=== PATIENT | male | born 1940 | race African-American/Black ===

== ENCOUNTER 2016-07-21 14:39 | Inpatient (IN) | payer MEDICARE ==
[~2016-07-21] VITALS: Ht 172.7 cm; Wt 80.5 kg
[~2016-07-21 14:39] MED LIST: ALBUTEROL S2.5 MG/.5 IN; ALBUTEROL2.5 MG/3 M IN; ALDACTONE25 MG PO; ALLOPURINOL300 MG PO; ANTIVERT PO; ANUCORT-HC25 MG RE; ARIXTR1 SC; ASPIRIN 81 LOW81 MG PO; ASPIRIN CHEWABL81 MG PO; ASPIRIN EC81 MG PO; ASPIRIN325 M1 OR; AVELOX400 MG OR; AVELOX400 MG PO; AZITHROMYCIN500 MG OR; BACTRIM DS1 TAB PO; BAYER ASA325 MG OR; BAYER LOW81 MG OR; CARVEDILOL25 MG PO; CEPHALEXIN500 M1 OR; CIPRO750 MG OR; CLONIDINE0.1 MG PO; COUMADIN5 MG OR; COUMADIN5 MG PO; COUMADIN7.5 MG OR; COUMADIN7.5 MG PO; DARVOCET-N 100100 MG OR; DEMADEX10 MG OR; DEMADEX20 MG PO; DULCOLAX SS100 MG PO; FERROUS SULF325 M3 PO; FOLIC ACID1 MG PO; FUROSEMIDE20 MG PO; HUMALOG100 UNIT/M SC; HYDROCO/APAP1 T11 PO; INSULIN; ISOSORB MONO20 MG PO; JANTOVEN2.5 MG PO; JANTOVEN5 MG PO; LANTUS100 MG/ML SC; LASIX 20 MG TAB20 MG PO; LASIX 20 MG20 MG/TAB PO; LASIX 40 MG TAB40 MG PO; LEVEMIR FL100 UNIT/M SC; LISINOPRIL10 MG OR; LISINOPRIL10 MG PO; LISINOPRIL20 M1 PO; LISINOPRIL5 MG OR; LOPRESSOR25 MG PO; LOPRESSOR50 M1 PO; LOPRESSOR50 MG OR; LORTAB 5 OR; LORTAB 5 PO; LOSARTAN POT50 MG PO; LOTRISONE CREAM15 GM TOP; MAG CITRATE PO; MEMANTINE HCL10 MG PO; METOPROLOL TAR100 MG PO; MILK OF MAG30 ML/UDC PO; MIRALAX3350 N1 PO; NAFCILLIN SODIUM2 GM IJ; NITROGLYCER0.4 MG SL; NITROSTAT0.3 MG SL; NORCO1 TA1 PO; NORVASC10 M1 PO; NORVASC5 MG PO; OMEPRAZOLE20 MG OR; OMEPRAZOLE20 MG PO; ONDANSETRON4 MG PO; PEPCID20 MG PO; PHENERGAN SUPP RE; POTASSIUM CHLO20 ME2 PO; PRAVACHOL20 MG PO; PREDNISONE10 MG PO; PROCRIT 1010000 U/ML IM; PROTONIX40 M3 PO; PT DOES NOT RECALL; RANEXA ER PO; RIFAMPIN300 MG PO; ROBITUSSIN AC OR; RYBIX ODT50 MG PO; SENNA1 TAB PO; SIMVASTATIN10 MG PO; SIMVASTATIN80 MG OR; ST JOSEPH75 MG OR; TOPROL XL25 M1 PO; TORSEMIDE20 M1 OR; TORSEMIDE20 M1 PO; TORSEMIDE20 MG OR; TRAMADOL HCL50 MG OR; TRAMADOL HCL50 MG PO; TYLENOL500 MG OR; ULTRAM50 M1 OR; ULTRAM50 M1 PO; ULTRAM50 MG OR; ULTRAM50 MG PO; VENTOLIN HFA IN; VIT B COMPLEX PO; VITAMIN D50000 UN1 PO; ZESTRIL10 M1 OR; ZESTRIL10 MG PO; ZOCOR OR; ZOCOR10 MG PO; ZOCOR20 MG OR; ZOCOR80 MG OR; ZYLOPRIM100 MG OR; ZYLOPRIM300 MG PO; [UNRECOGNIZED DRUG - OTHER] PO; [UNRECOGNIZED DRUG - SUPPLY]
[2016-07-21 15:16] LABS: HEMATOCRIT 28.2 % (39.0-50.0); HEMOGLOBIN 9.2 g/dl (14.0-18.0); IMMATURE GRANULOCYTES 0.4 % (0.0-1.0); MEAN CELL VOLUME 96.2 fL CALC (80.0-100.0); MEAN CORPUSCULAR HGB 31.4 pG CALC (26.0-32.0); MEAN CORPUSCULAR HGB CONC 32.6 g/L CALC (32.0-36.0); NEUT# 1.28 thou/uL (1.82-7.42); RED BLOOD COUNT 2.93 mill/uL (4.70-6.10); RED CELL DISTRI WIDTH 15.4 % (11.5-15.5)
[2016-07-21 15:20] LABS: INTERNATIONAL NORMALIZED RATIO 1.1 RATIO (0.7-1.3); PROTHROMBIN TIME 12.3 SECONDS (9.0-12.5)
[2016-07-21 15:27] LABS: ALBUMIN 3.8 g/dL (3.2-5.0); BILIRUBIN, TOTAL 1.1 mg/dL (0.0-1.4); CALCIUM 9.2 mg/dL (8.4-10.2); TOTAL PROTEIN 6.8 g/dL (6.3-8.2)
[2016-07-21 15:28] LABS: POTASSIUM 5.9 mmol/l (3.5-5.1)
--- NOTE | 2016-07-21 16:57 | NUR ---
PT SEEN RESTING QUIETLY IN THE STRETCHER, SEEN HYPERTENSIVE.
[2016-07-21 16:58] LABS: URINE BILIRUBIN - DIPSTICK NEGATIVE (NEGATIVE); URINE BLOOD DIPSTICK SMALL (NEGATIVE); URINE CLARITY CLEAR; URINE COLOR YELLOW; URINE GLUCOSE - DIPSTICK NEGATIVE (NEGATIVE); URINE KETONE NEGATIVE (NEGATIVE); URINE LEUK ESTERASE NEGATIVE (NEGATIVE); URINE NITRITE - DIPSTICK NEGATIVE (Negative); URINE PROTEIN - DIPSTICK TRACE mg/dL (NEG-TRACE); URINE UROBILINOGEN - DIPSTICK 0.2 E.U./dL (0.2)
--- NOTE | 2016-07-21 17:08 | NUR ---
PT PROVIDED ENALAPRIL IV FOR ELEVATED BP.
[2016-07-21 17:18] LABS: URINE WBC 0-2 WBC/hpf (0-5)
[2016-07-21] MEDS ORDERED: DOXAZOSIN1 MG PO (19:19)
[2016-07-21] MEDS ORDERED: RANEXA PO (19:21)
[2016-07-21] MEDS ORDERED: LASIX 20 MG20 MG/TAB PO (19:21)
[2016-07-21] MEDS ORDERED: CLONIDINE0.1 MG PO (19:22)
--- NOTE | 2016-07-21 19:32 | NUR ---
PT TAKEN TO FLOOR BY SAM, REPORT WAS TO ZECHARIAH.
[2016-07-21 19:37] VITALS: BP 155/73
--- NOTE | 2016-07-21 19:37 | NUR ---
PT TRANSFERED TO FLOOR IN STABLE CONDITION VIA STRETCHER ACCOMPANIED BY QUIQUE VARGAS;PT AMBULATED WITH WEAK GAIT TO STANDING SCALE;VS OBTAINED;PT ORIENTED TO ROOM AND CALL LIGHT SYSTEM AND VERBALIZED UNDERSTANDING;PT DENIES ANY PAIN OR DIZZINESS AT THIS TIME;EMS IV SITE TO RT WRIST FLUSHED AND PATENT,FLUIDS STARTED AT THIS;TELE MONITOR IN PLACE AT A PACED RATE;ASSESSMENT COMPLETED;SKIN INTACT;PT A&O X3;PT STATED LAST BM TO BE 07/20;PT EDUCATED ON SAFETY PRECAUTIONS AND VERBALIZES UNDERSTANDING;URINAL AT BEDSIDE;PT TOLD TO CALL FOR ASSISTANCE IF NEEDED;BED IN LOWEST POSITION WITH CALL LIGHT IN REACH;WILL CONTINUE TO MONITOR
[2016-07-21 21:30] VITALS: BP 138/71
--- NOTE | 2016-07-21 22:00 | NUR ---
PT REQUESTS PRN SLEEP MEDICATION; NOTIFED;NO NEW ORDERS RECEIVED;WILL CONTINUE TO MONITOR
[2016-07-21 23:11] VITALS: BP 150/80
--- NOTE | 2016-07-21 23:30 | NUR ---
PT SLEEPING IN SEMI FOWLERS POSITION;NO S/S OF DISTRESS NOTED;RESPIRATIONS EVEN AND UNLABORED ON RA;URINAL AT BEDSIDE;FALL PRECAUTIONS IN PLACE;BED IN LOWEST POSITION WITH CALL LIGHT IN REACH;WILL CONTINUE TO MONITOR
--- NOTE | 2016-07-22 04:30 | NUR ---
PT RESTING IN SEMI FOWLERS;VS OBTAINED;PT DENIES ANY PAIN OR DISCOMFORTS;IV SITE INFUSING WELL;TELE MONITOR IN PLACE;PT REFUSES DAILY WT AT THIS TIME STATING "I WILL WHEN I WAKE UP MORE";PT DENIES ANY OTHER NEEDS AT THIS TIME;BED IN LOWEST POSITION WITH CALL LIGHT IN REACH;WILL CONTINUE TO MONITOR
[2016-07-22 04:36] VITALS: BP 135/78
[2016-07-22 06:32] LABS: INTERNATIONAL NORMALIZED RATIO 1.2 RATIO (0.7-1.3); PROTHROMBIN TIME 13.4 SECONDS (9.0-12.5)
[2016-07-22 06:37] LABS: ALBUMIN 3.4 g/dL (3.2-5.0); CREATININE 3.5 mg/dL (0.7-1.3); POTASSIUM 4.9 mmol/l (3.5-5.1)
[2016-07-22 07:40] VITALS: BP 117/69
--- NOTE | 2016-07-22 07:40 | NUR ---
PT SITTING UP IN RECLINER AT BEDSIDE, IVF INFUSING AT PRESCRIBED RATE, AM ASSESSMENT COMPLETED, SEE INTERVENTIONS, DENIES PAIN OR DISCOMFORT, NO SHORTNESS OF BREATH OR DISTRESS NOTED, TOLERATING AM MEAL W/O INCIDENT, SAFTEY MEASURES REINFORCED, CALL GOMEZ WITHIN REACH, ENCOURAGED TO CALL FOR ANY NEEDED ASSISTANCE, VERBALIZES UNDERSTANDING, WILL CONTINUE TO MONITOR.
--- NOTE | 2016-07-22 08:15 | NUR ---
BLANKET PROVIDED FOR COMFORT, OFFERS NO OTHER COMPLAINTS, TOLERATE BREAKFAST WELL WITH ADEQUATE INTAKE.
--- NOTE | 2016-07-22 09:20 | NUR ---
IN TO SEE PATIENT, PLAN OF CARE DISCUSSED, CALL GOMEZ WITHIN REACH
--- NOTE | 2016-07-22 11:39 | NUR ---
PT REMAINS SITTING UP IN CHAIR AT BEDSIDE, DOZES INTERMITTENLY, OFFERS NO NEW COMPLAINTS, IVF CONTINUE W/O INCIDENT, WILL CONTINUE TO MONITOR.
[2016-07-22 12:13] VITALS: BP 122/71
[2016-07-22 16:35] VITALS: BP 137/82
--- NOTE | 2016-07-22 16:39 | NUR ---
PT REMAINS SITTING UP IN CHAIR WITH FEET ELEVATED, FAMILY REMAINS AT BEDSIE, OFFERS NO COMPLAINTS OFFERED WILL CONTINUE TO MONITOR
[2016-07-22 20:08] VITALS: BP 137/78
--- NOTE | 2016-07-22 21:20 | NUR ---
PT RESTING IN HIGH FOWLERS POSITION;IV FLUIDS INFUSING WELL TO RT FOREARM;PT EDUCATED ON EMS IV SITE EXPIRATION DATE AND AGREES TO START NEW SITE IN THE MORNING;ASSESSMENT COMPLETED;BILATERAL LOWER LEG EDEMA NOTED,FEET ELEVATED WITH A PILLOW;SKIN INTACT;TELE MONITOR IN PLACE READING PACED 69;URINAL AT BEDSIDE;PT DENIES ANY PAIN OR NEEDS AT THIS TIME;PT TOLD TO CALL FOR ASSISTANCE IF NEEDED;BED IN LOWEST POSITION WITH FALL PRECAUTIONS IN PLACE;CALL LIGHT WITHIN REACH;WILL CONTINUE TO MONITOR
[2016-07-23] VITALS (7 sets, daily range): BP systolic 121–170; BP diastolic 68–89
--- NOTE | 2016-07-23 00:15 | NUR ---
PT SLEEPING IN SEMI FOWLERS POSITION;NO S/S OF DISTRESS NOTED;RESPIRATIONS EVEN AND UNLABORED ON RA;IV FLUIDS INFUSING WELL;TELE MONITOR IN PLACE;URINAL AT BEDSIDE;BED IN LOWEST POSITION WITH CALL LIGHT IN REACH;WILL CONTINUE TO MONITOR
--- NOTE | 2016-07-23 03:20 | NUR ---
PT RESTING IN HIGH FOWLERS POSITION;NEW BAG OF FLUIDS HUNG PER MED SCHEDULE;VS OBTAINED;PT DENIES ANY PAIN OR NEEDS AT THIS TIME;URINAL AT BEDSIDE;TELE MONITOR IN PLACE;BED IN LOWEST POSITION WITH CALL LIGHT IN REACH;WILL CONTINUE TO MONITOR
--- NOTE | 2016-07-23 03:57 | NUR ---
NEW #20 STARTED TO PTS RT WRIST;EMS SITE REMOVED,WITH CATHETER INTACT, DUE TO EXPIRATION;IV FLUIDS INFUSING WELL AT THIS TIME;PT DENIES ANY OTHER NEEDS;BED IN LOWEST POSITION WITH CALL LIGHT IN REACH;WILL CONTINUE TO MONITOR
[2016-07-23 05:55] LABS: CALCIUM 8.7 mg/dL (8.4-10.2); POTASSIUM 4.7 mmol/l (3.5-5.1)
--- NOTE | 2016-07-23 07:00 | NUR ---
SHIFT CHANGE REPORT FROM FAITH DENIS AWAKE ALERT AND ORIENTED BEING ASSISTED WITH SHOWER AT THIS TIME, WILL CONTINUE TO MONITOR.
--- NOTE | 2016-07-23 12:00 | NUR ---
SITTING UP IN RECLINER HAVING MEAL, ALL NEEDS MET/ADDRESSED, CALL GOMEZ IN REACH.
--- NOTE | 2016-07-23 14:02 | NUR ---
PATIENT UP IN CHAIR ASLEEP. EASILY AROUSED AND AGREED TO AMB. SIT TO STAND WITH SBA AND AMB WITH [employer] MANAGEMENT OFFICER WHILE PUSHING IV POLE WITH OTHER HAND. BALANCE WAS UNSTEADY WITH NARROW BASE OF SUPPORT. HE AMB 90 FEET WITH ON ROOM AIR WITH O2 SATS DECREASING FROM 96% TO 90%. STAND TO SIT WITH DECREASED GRADED CONTROL AND SAFETY, BUT GOOD HAND PLACEMENT. ABLE TO MARCH AND EXTEND KNEES IN SITTING ALTERNATELY. DEMONSTRATES DECREASED GENERAL STRENGTH AND REPORTS RECENT FALL WITH INABILITY TO GET UP BY HIMSELF (LAST WEDNESDAY). DISCUSSED NECESSITY FOR INPATIENT REHAB AND HE IS WILLING TO GO IF INSURANCE WILL COVER IT. PHYSICIAN NOTIFIED AND CASE MANAGEMENT WORKING ON IT.
--- NOTE | 2016-07-23 16:00 | NUR ---
SITTING UP IN RECLINEDR, C/O BACK PAIN, ISSUE ADDRESSED, CALL GOMEZ IN REACH.
--- NOTE | 2016-07-23 20:05 | NUR ---
PT IN BED WATCHING TV, RESPIRATIONS EVEN AND UNLABORED ON RA, DENIES PAIN OR DISCOMFORT. NS INFUSING TO RW AT 50CC/HR. CALL LIGHT AND URINAL AT BED SIDE.
--- NOTE | 2016-07-24 00:25 | NUR ---
RESTING WITH EYES CLOSED, RESPIRATIONS EVEN AND UNLABORED.
[2016-07-24 03:38] VITALS: BP 157/80
[2016-07-24 05:18] LABS: HEMATOCRIT 28.4 % (39.0-50.0); HEMOGLOBIN 9.2 g/dl (14.0-18.0); IMMATURE GRANULOCYTES 0.4 % (0.0-1.0); MEAN CORPUSCULAR HGB 30.8 pG CALC (26.0-32.0); MEAN CORPUSCULAR HGB CONC 32.4 g/L CALC (32.0-36.0); NEUT# 1.12 thou/uL (1.82-7.42); RED BLOOD COUNT 2.99 mill/uL (4.70-6.10); RED CELL DISTRI WIDTH 15.1 % (11.5-15.5)
[2016-07-24 05:43] LABS: CALCIUM 8.9 mg/dL (8.4-10.2); CREATININE 2.5 mg/dL (0.7-1.3); POTASSIUM 4.9 mmol/l (3.5-5.1)
[2016-07-24 05:46] LABS: INTERNATIONAL NORMALIZED RATIO 1.3 RATIO (0.7-1.3); PROTHROMBIN TIME 14.1 SECONDS (9.0-12.5)
--- NOTE | 2016-07-24 07:07 | NUR ---
BEDSIDE REPORT RECEIVED FROM ROSALVA CHRISTIAN. PT UP TO CHAIR. DENIES PAIN. REPORTING OF CONCERNS ENCOURAGED. PLAN OF CARE DISCUSSED. FALL PRECAUTIONS REINFORCED. CALL LIGHT REVIEWED AND IN REACH. PT STATES UNDERSTANDING.
--- NOTE | 2016-07-24 08:36 | NUR ---
PT REPORTS NAUSEA. ZOFRAN IV ADMINISTERED. WILL CONTINUE TO MONITOR.
[2016-07-24 09:32] VITALS: BP 148/79
[2016-07-24 11:03] VITALS: BP 156/88
--- NOTE | 2016-07-24 11:27 | NUR ---
PATIENT UP IN CHAIR, MORE ALERT AND WILLING TO WALK. SIT TO STAND WITH SBA FOR GT X 1. AMB WITH RW 125 FEET ON ROOM AIR WITH SBA AND NO LOB, EVEN WITH TURNING TODAY. ABLE TO PERFORM STAND TO SIT SAFELY WITH ONLY V.C. TO SHOW ME HOW HE CAN DO SO SAFELY. O2 SATS 92% UPON SITTING AND BACK UP TO 97% IN < A MIN. DISCUSSED NEED TO USE 2 WHEELED RW AT HOME TO CONSIDER HOME P.T. PATIENT WISHES TO BE HOME WITH HIS . HE DEMONSTRATES APPROX 80% IMPROVEMENT IN BALANCE AND SAFETY WITH RW SINCE HIS INITIAL EVALUATION EARLIER THIS WEEK. DISCUSSED ABOVE WITH CASE MANAGEMENT.
--- NOTE | 2016-07-24 15:07 | NUR ---
Discharge instructions given. Patient verbalizes understanding of same. Discharged in stable condition via Wheelchair to Home with spouse. All belongings sent with pt.
== END 2016-07-24 15:00 | disposition home health service (06) | DRG 312 ==
LOC: ENPENDDIS → ED 14:39 → ED-I 17:35 → ED 17:53 → MS2 17:54
PROVIDERS: Emergency Medicine; Internal Medicine; Internal Medicine Nephrology; ADMIT Internal Medicine; ATTEND Internal Medicine
DX: I95.1 Orthostatic hypotension (principal); N17.9 Acute kidney failure, unspecified; E11.22 Type 2 diabetes mellitus with diabetic chronic kidney disease; E87.5 Hyperkalemia; N25.81 Secondary hyperparathyroidism of renal origin; E86.0 Dehydration; I12.9 Hypertensive chronic kidney disease with stage 1 through stage 4 chronic kidney disease, or unspecified chronic kidney disease; N18.3 Chronic kidney disease, stage 3 (moderate); I25.10 Atherosclerotic heart disease of native coronary artery without angina pectoris; E78.5 Hyperlipidemia, unspecified; D63.1 Anemia in chronic kidney disease; E83.39 Other disorders of phosphorus metabolism; T50.1X5A Adverse effect of loop [high-ceiling] diuretics, initial encounter; T46.4X5A Adverse effect of angiotensin-converting-enzyme inhibitors, initial encounter; Z79.01 Long term (current) use of anticoagulants; Z95.3 Presence of xenogenic heart valve; Z91.81 History of falling; Z79.4 Long term (current) use of insulin; Z95.1 Presence of aortocoronary bypass graft
CPT/HCPCS: G0378; J0885; J1650

== ENCOUNTER 2016-11-16 14:57 | Observation (INO) | payer MEDICARE ==
[~2016-11-16] VITALS: Ht 172.7 cm; Wt 72.0 kg
[~2016-11-16 14:57] MED LIST changes: +DOXAZOSIN1 MG PO; +GLYCOLAX3350 N1 PO; +RANEXA PO; +SURFAK240 MG/CAP PO
[2016-11-16 15:45] LABS: HEMATOCRIT 24.9 % (39.0-50.0); HEMOGLOBIN 8.2 g/dl (14.0-18.0); IMMATURE GRANULOCYTES 0.5 % (0.0-1.0); MEAN CELL VOLUME 95.8 fL CALC (80.0-100.0); MEAN CORPUSCULAR HGB 31.5 pG CALC (26.0-32.0); MEAN CORPUSCULAR HGB CONC 32.9 g/L CALC (32.0-36.0); NEUT# 0.82 thou/uL (1.82-7.42); RED BLOOD COUNT 2.6 mill/uL (4.70-6.10); RED CELL DISTRI WIDTH 16.7 % (11.5-15.5)
[2016-11-16 15:59] LABS: ALBUMIN 3.8 g/dL (3.2-5.0); BILIRUBIN, TOTAL 0.7 mg/dL (0.0-1.4); CALCIUM 8.8 mg/dL (8.4-10.2); CREATININE 3.3 mg/dL (0.7-1.3); POTASSIUM 4.4 mmol/l (3.5-5.1); TOTAL PROTEIN 6.4 g/dL (6.3-8.2)
[2016-11-16 16:53] LABS: INTERNATIONAL NORMALIZED RATIO 3.5 RATIO (0.7-1.3); PROTHROMBIN TIME 41.9 SECONDS (9.0-12.5)
[2016-11-16] MEDS ORDERED: JANTOVEN2.5 MG PO (16:58)
[2016-11-16] MEDS ORDERED: ISOSORBIDE MONO30 MG PO (17:05)
[2016-11-16 20:07] VITALS: BP 127/72
[2016-11-17 01:43] VITALS: BP 140/84
[2016-11-17 05:28] VITALS: BP 152/90
[2016-11-17 06:20] LABS: HEMATOCRIT 25.3 % (39.0-50.0); HEMOGLOBIN 8.2 g/dl (14.0-18.0); IMMATURE GRANULOCYTES 0.4 % (0.0-1.0); MEAN CELL VOLUME 96.2 fL CALC (80.0-100.0); MEAN CORPUSCULAR HGB 31.2 pG CALC (26.0-32.0); MEAN CORPUSCULAR HGB CONC 32.4 g/L CALC (32.0-36.0); NEUT# 0.99 thou/uL (1.82-7.42); RED BLOOD COUNT 2.63 mill/uL (4.70-6.10); RED CELL DISTRI WIDTH 16.3 % (11.5-15.5)
[2016-11-17 06:29] LABS: CALCIUM 8.6 mg/dL (8.4-10.2); CREATININE 2.6 mg/dL (0.7-1.3)
[2016-11-17 06:36] LABS: INTERNATIONAL NORMALIZED RATIO 3.5 RATIO (0.7-1.3); PROTHROMBIN TIME 41.4 SECONDS (9.0-12.5)
[2016-11-17 08:00] VITALS: BP 146/78
[2016-11-17 12:25] VITALS: BP 123/76
[2016-11-17 15:30] VITALS: BP 182/89
== END 2016-11-17 17:20 | disposition home or self-care (01) ==
LOC: ENPENDDIS → ED 14:57 → ED-I 16:50 → ED 17:26 → MS2 17:27
PROVIDERS: Emergency Medicine; ADMIT Internal Medicine; ATTEND Internal Medicine
PROC: 0HQ1XZZ Repair Face Skin, External Approach (ICD-10-PCS; principal; 2016-11-16)
DX: I95.1 Orthostatic hypotension (principal); S01.112A Laceration without foreign body of left eyelid and periocular area, initial encounter; E11.22 Type 2 diabetes mellitus with diabetic chronic kidney disease; I12.9 Hypertensive chronic kidney disease with stage 1 through stage 4 chronic kidney disease, or unspecified chronic kidney disease; N18.3 Chronic kidney disease, stage 3 (moderate); E78.5 Hyperlipidemia, unspecified; E86.0 Dehydration; N17.9 Acute kidney failure, unspecified; D63.1 Anemia in chronic kidney disease; I48.91 Unspecified atrial fibrillation; I25.2 Old myocardial infarction; W19.XXXA Unspecified fall, initial encounter; Y92.009 Unspecified place in unspecified non-institutional (private) residence as the place of occurrence of the external cause; Z86.73 Personal history of transient ischemic attack (TIA), and cerebral infarction without residual deficits; Z95.0 Presence of cardiac pacemaker; Z95.2 Presence of prosthetic heart valve; Z79.01 Long term (current) use of anticoagulants; Z95.5 Presence of coronary angioplasty implant and graft

== ENCOUNTER 2017-01-21 08:03 | Observation (INO) | payer MEDICARE ==
[~2017-01-21] VITALS: Ht 172.7 cm; Wt 74.6 kg
[~2017-01-21 08:03] MED LIST changes: +ISOSORBIDE MONO30 MG PO
[2017-01-21] MEDS ORDERED: METOPROL TAR25 MG PO (08:41)
[2017-01-21] MEDS ORDERED: ISOSORB MONO30 MG PO (08:42)
[2017-01-21 08:43] LABS: HEMATOCRIT 24.6 % (39.0-50.0); HEMOGLOBIN 8.2 g/dl (14.0-18.0); IMMATURE GRANULOCYTES 0.4 % (0.0-1.0); MEAN CORPUSCULAR HGB 31.7 pG CALC (26.0-32.0); MEAN CORPUSCULAR HGB CONC 33.3 g/L CALC (32.0-36.0); NEUT# 1.08 thou/uL (1.82-7.42); RED BLOOD COUNT 2.59 mill/uL (4.70-6.10); RED CELL DISTRI WIDTH 15.4 % (11.5-15.5)
[2017-01-21] MEDS ORDERED: ATORVASTATIN CA20 MG PO (08:45)
[2017-01-21] MEDS ORDERED: FAMOTIDINE20 M1 PO (08:45)
[2017-01-21 09:06] LABS: INTERNATIONAL NORMALIZED RATIO 1.5 RATIO (0.7-1.3); PROTHROMBIN TIME 17.4 SECONDS (9.0-12.5)
[2017-01-21 09:08] LABS: ALBUMIN 3.5 g/dL (3.2-5.0); BILIRUBIN, TOTAL 1.4 mg/dL (0.0-1.4); CALCIUM 9.2 mg/dL (8.4-10.2); CREATININE 2.3 mg/dL (0.7-1.3); POTASSIUM 4.4 mmol/l (3.5-5.1); TOTAL PROTEIN 6.5 g/dL (6.3-8.2)
[2017-01-21 10:52] LABS: URINE BILIRUBIN - DIPSTICK NEGATIVE (NEGATIVE); URINE BLOOD DIPSTICK NEGATIVE (NEGATIVE); URINE CLARITY CLEAR; URINE COLOR YELLOW; URINE GLUCOSE - DIPSTICK NEGATIVE (NEGATIVE); URINE KETONE NEGATIVE (NEGATIVE); URINE LEUK ESTERASE NEGATIVE (NEGATIVE); URINE NITRITE - DIPSTICK NEGATIVE (Negative); URINE PROTEIN - DIPSTICK TRACE mg/dL (NEG-TRACE); URINE UROBILINOGEN - DIPSTICK 0.2 E.U./dL (0.2)
[2017-01-21 15:49] VITALS: BP 162/91
[2017-01-21 18:50] VITALS: BP 161/89
[2017-01-21 19:00] VITALS: BP 161/89
[2017-01-22 00:45] VITALS: BP 133/75
[2017-01-22 04:30] VITALS: BP 160/85
[2017-01-22 07:09] LABS: HEMATOCRIT 24.5 % (39.0-50.0); HEMOGLOBIN 8.2 g/dl (14.0-18.0); MEAN CELL VOLUME 94.6 fL CALC (80.0-100.0); MEAN CORPUSCULAR HGB 31.7 pG CALC (26.0-32.0); MEAN CORPUSCULAR HGB CONC 33.5 g/L CALC (32.0-36.0); NEUT# 1.01 thou/uL (1.82-7.42); RED BLOOD COUNT 2.59 mill/uL (4.70-6.10); RED CELL DISTRI WIDTH 15.3 % (11.5-15.5)
[2017-01-22 07:27] LABS: CALCIUM 9.1 mg/dL (8.4-10.2); POTASSIUM 4.3 mmol/l (3.5-5.1)
[2017-01-22 07:46] LABS: INTERNATIONAL NORMALIZED RATIO 1.5 RATIO (0.7-1.3); PROTHROMBIN TIME 16.8 SECONDS (9.0-12.5)
[2017-01-22 08:20] VITALS: BP 108/66
[2017-01-22 11:08] VITALS: BP 153/76
== END 2017-01-22 16:29 ==
LOC: ED 08:03 → ED-I 08:37 → ED 08:37 → ED-I 10:18 → ED 11:02 → ED-I 11:03 → MS2 14:05
PROVIDERS: Emergency Medicine; Nurse Practitioner Family; ADMIT Internal Medicine; ATTEND Internal Medicine
DX: R07.9 Chest pain, unspecified (principal); I12.9 Hypertensive chronic kidney disease with stage 1 through stage 4 chronic kidney disease, or unspecified chronic kidney disease; E11.22 Type 2 diabetes mellitus with diabetic chronic kidney disease; N18.3 Chronic kidney disease, stage 3 (moderate); M19.90 Unspecified osteoarthritis, unspecified site; I25.10 Atherosclerotic heart disease of native coronary artery without angina pectoris; E78.5 Hyperlipidemia, unspecified; I48.91 Unspecified atrial fibrillation; D63.1 Anemia in chronic kidney disease; D61.818 Other pancytopenia; I25.2 Old myocardial infarction; Z95.0 Presence of cardiac pacemaker; Z79.01 Long term (current) use of anticoagulants; Z79.4 Long term (current) use of insulin; Z95.5 Presence of coronary angioplasty implant and graft; Z86.73 Personal history of transient ischemic attack (TIA), and cerebral infarction without residual deficits; Z95.2 Presence of prosthetic heart valve
CPT/HCPCS: G0378

== ENCOUNTER 2017-04-18 11:43 | Observation (INO) | payer MEDICARE ==
[~2017-04-18] VITALS: Ht 167.6 cm; Wt 75.5 kg
[~2017-04-18 11:43] MED LIST changes: +ATORVASTATIN CA20 MG PO; +FAMOTIDINE20 M1 PO; +ISOSORB MONO30 MG PO; +METOPROL TAR25 MG PO
[2017-04-18 12:37] LABS: HEMATOCRIT 22.4 % (39.0-50.0); HEMOGLOBIN 7.2 g/dl (14.0-18.0); IMMATURE GRANULOCYTES 0.4 % (0.0-1.0); MEAN CELL VOLUME 98.2 fL CALC (80.0-100.0); MEAN CORPUSCULAR HGB 31.6 pG CALC (26.0-32.0); MEAN CORPUSCULAR HGB CONC 32.1 g/L CALC (32.0-36.0); NEUT# 1.11 thou/uL (1.82-7.42); RED BLOOD COUNT 2.28 mill/uL (4.70-6.10); RED CELL DISTRI WIDTH 15.4 % (11.5-15.5)
[2017-04-18 12:46] LABS: CREATININE 2.6 mg/dL (0.7-1.3); POTASSIUM 3.7 mmol/l (3.5-5.1)
[2017-04-18 13:09] LABS: INFLUENZA A NONE DETECTED (NONE DETECT); INFLUENZA B NONE DETECTED (NONE DETECT)
[2017-04-18 13:27] LABS: INTERNATIONAL NORMALIZED RATIO 1.4 RATIO (0.7-1.3); PROTHROMBIN TIME 15.9 SECONDS (9.0-12.5)
[2017-04-18 16:07] VITALS: BP 152/81
[2017-04-18] MEDS ORDERED: NITROGLYCERIN0.4 MG SL (16:10)
[2017-04-18] MEDS ORDERED: PROAIR HFA108 MCG/AC IN (16:17)
[2017-04-18 19:08] VITALS: BP 121/58
[2017-04-18 23:40] VITALS: BP 122/70
[2017-04-19 05:06] LABS: MEAN CELL VOLUME 96.3 fL CALC (80.0-100.0); MEAN CORPUSCULAR HGB 32.1 pG CALC (26.0-32.0); MEAN CORPUSCULAR HGB CONC 33.3 g/L CALC (32.0-36.0); RED BLOOD COUNT 2.18 mill/uL (4.70-6.10); RED CELL DISTRI WIDTH 15.1 % (11.5-15.5)
[2017-04-19 05:10] LABS: INTERNATIONAL NORMALIZED RATIO 1.4 RATIO (0.7-1.3); PROTHROMBIN TIME 15.6 SECONDS (9.0-12.5)
[2017-04-19 05:20] LABS: ALBUMIN 2.7 g/dL (3.2-5.0); CALCIUM 8.9 mg/dL (8.4-10.2); CHOLESTEROL HDL RATIO 2.1 (<4.4 (CALC)); CREATININE 2.3 mg/dL (0.7-1.3); POTASSIUM 3.7 mmol/l (3.5-5.1)
[2017-04-19 05:35] VITALS: BP 155/87
[2017-04-19 07:58] VITALS: BP 176/82
[2017-04-19 11:38] VITALS: BP 128/76
== END 2017-04-19 12:35 | disposition home health service (06) ==
LOC: ED 11:43 → ED-I 13:48 → ED 13:57 → MS2 13:58
PROVIDERS: Family Medicine; ADMIT Internal Medicine; ATTEND Internal Medicine
DX: R07.9 Chest pain, unspecified (principal); I12.9 Hypertensive chronic kidney disease with stage 1 through stage 4 chronic kidney disease, or unspecified chronic kidney disease; E11.22 Type 2 diabetes mellitus with diabetic chronic kidney disease; N18.3 Chronic kidney disease, stage 3 (moderate); I25.10 Atherosclerotic heart disease of native coronary artery without angina pectoris; M19.90 Unspecified osteoarthritis, unspecified site; M10.9 Gout, unspecified; D63.1 Anemia in chronic kidney disease; E78.5 Hyperlipidemia, unspecified; R41.3 Other amnesia; I48.91 Unspecified atrial fibrillation; R79.1 Abnormal coagulation profile; R19.7 Diarrhea, unspecified; D72.819 Decreased white blood cell count, unspecified; Z95.5 Presence of coronary angioplasty implant and graft; Z95.2 Presence of prosthetic heart valve; Z79.01 Long term (current) use of anticoagulants; Z79.4 Long term (current) use of insulin; Z86.73 Personal history of transient ischemic attack (TIA), and cerebral infarction without residual deficits; Z95.0 Presence of cardiac pacemaker
CPT/HCPCS: J0885